=== PATIENT | female | born 1990 | race Caucasian/White ===

== ENCOUNTER 2020-09-13 16:09 | Outpatient (REF) | payer MEDICAID, SELFPAY ==
[2020-09-13 16:09] LABS: TSH (W/Ref FT4) 0.87 uIU/mL (0.36-3.74)
[2020-09-14 14:21] LABS: Chlamydia Result Negative (Negative); GC Result Negative (Negative)
== END 2020-09-13 16:29 ==
LOC: NCHCN 16:09
PROVIDERS: PCP Nurse Practitioner Family; Visit Provider Nurse Practitioner Family
DX: N89.8 Other specified noninflammatory disorders of vagina (principal); Z11.3 Encounter for screening for infections with a predominantly sexual mode of transmission; Z20.2 Contact with and (suspected) exposure to infections with a predominantly sexual mode of transmission
CPT/HCPCS: 87491; 87591; 84443; 87480; 87510; 87660

== ENCOUNTER 2023-05-08 14:32 | Outpatient (REF) | payer MEDICAID, SELFPAY ==
[2023-05-09 13:13] LABS: Chlamydia Result Negative (Negative); GC Result Negative (Negative)
== END 2023-05-08 14:33 | disposition home or self-care (01) ==
LOC: LBN 14:32
PROVIDERS: PCP Nurse Practitioner Family; Visit Provider Obstetrics & Gynecology
DX: N94.89 Other specified conditions associated with female genital organs and menstrual cycle; N89.8 Other specified noninflammatory disorders of vagina; Z11.3 Encounter for screening for infections with a predominantly sexual mode of transmission; N76.0 Acute vaginitis
CPT/HCPCS: 87491; 87591; 87480; 87510; 87660

== ENCOUNTER 2023-10-24 16:21 | Outpatient (REF) | payer MEDICAID, SELFPAY ==
[2023-10-26 14:40] LABS: Chlamydia Result Negative (Negative); GC Result Negative (Negative)
== END 2023-10-24 16:22 | disposition home or self-care (01) ==
LOC: LBN 16:21
PROVIDERS: PCP Nurse Practitioner Family; Visit Provider Obstetrics & Gynecology
DX: N89.8 Other specified noninflammatory disorders of vagina (principal); Z11.3 Encounter for screening for infections with a predominantly sexual mode of transmission
CPT/HCPCS: 87491; 87591; 87480; 87510; 87660

== ENCOUNTER 2024-07-22 11:28 | Outpatient (REF) | payer MEDICAID, SELFPAY ==
[2024-07-22 13:02] LABS: Bilirubin Negative (Negative); Blood Negative (Negative); Clarity Clear (Clear); Glucose Negative (Negative); Ketones Negative (Negative); Leukocyte Esterase Small (Negative); Nitrite Negative (Negative); Specific Gravity 1.015 (1.005-1.025); Urobilinogen 0.2 mg/dL (Up to 0.2); pH 5.5 (5-8)
[2024-07-22 13:16] LABS: RBC 0-2 HPF (0-2)
[2024-07-22 13:17] LABS: Bacteria Few HPF (Negative); C & S Indicated? No/Sq. Contamination; Casts Negative LPF (Negative); Crystals Negative HPF (Negative); Epithelial Cells Moderate HPF (Negative); Mucus Negative (Negative)
[2024-07-24 13:15] LABS: Bacterial Vaginosis (BV) Positive (Negative); Candida glabrata Negative (Negative); Candida species group Negative (Negative); Chlamydia Result Negative (Negative); GC Result Negative (Negative); Trichomonas vaginalis Negative (Negative)
== END 2024-07-22 11:29 | disposition home or self-care (01) ==
LOC: LBN 11:28
PROVIDERS: PCP Nurse Practitioner Family; Visit Provider Physician Assistant
DX: R39.9 Unspecified symptoms and signs involving the genitourinary system; Z11.3 Encounter for screening for infections with a predominantly sexual mode of transmission; N39.0 Urinary tract infection, site not specified; R30.0 Dysuria; N89.8 Other specified noninflammatory disorders of vagina
CPT/HCPCS: 81513; 87481; 87491; 87591; 87661; 81003; 81015; 87480; 87510; 87660

== ENCOUNTER 2025-01-26 14:56 | Outpatient (CLI) | payer MEDICAID, SELFPAY ==
--- NOTE | 2025-01-26 14:45 | DI.RAD_ITS ---
Exam(s) XR CHEST 2V PA LATERAL EXAM: XR CHEST 2V PA LATERAL CLINICAL HISTORY: R05.9 Cough, r/o pneumonia TECHNIQUE: 2D digital imaging was performed of the chest. Two images were obtained. PA and lateral views were obtained. COMPARISON: No exams were available for comparison FINDINGS: MEDIASTINUM: Normal. HEART: Normal. PULMONARY VASCULATURE: Normal. LUNGS: Clear. PLEURAL SPACE: No pleural effusion or pneumothorax. BONE:Within normal limits for the patient's age. OTHER FINDINGS:Normal. IMPRESSION: No acute pulmonary findings. DATA REPOSITORY: RADIATION DOSE DELIVERED:
== END 2025-01-26 15:16 ==
LOC: DI 14:57
PROVIDERS: PCP Nurse Practitioner Family; Visit Provider Physician Assistant
DX: R05.9 Cough, unspecified (principal)
CPT/HCPCS: 71046

== ENCOUNTER 2025-06-02 19:32 | Outpatient (REF) | payer SELFPAY ==
[2025-06-04 11:14] LABS: Chlamydia Result Negative (Negative); GC Result Negative (Negative)
== END 2025-06-02 19:33 | disposition home or self-care (01) ==
LOC: LBN 19:32
PROVIDERS: Visit Provider Nurse Practitioner Family
DX: R30.0 Dysuria (principal); Z11.3 Encounter for screening for infections with a predominantly sexual mode of transmission
CPT/HCPCS: 87491; 87591; 87480; 87510; 87660

== ENCOUNTER → 2025-07-26 02:30 | Outpatient (CLI) | payer MEDICAID, SELFPAY ==
--- NOTE | 2025-07-26 13:45 | DI.MAMMO_ITS ---
Exam(s) US BREAST RT COMPLETE MG MAMMO DIAGNOSTIC BI EXAM: MG MAMMO DIAGNOSTIC BI AND COMPLETE RIGHT BREAST ULTRASOUND CLINICAL HISTORY: eval pathology,rt breast swelling and infection,mastitis,n61.0. TECHNIQUE: BILATERAL CC AND MLO mammographic images were obtained with 3D tomosynthesis technique and utilizing computer aided detection (CAD). ALSO PERFORMED SPOT COMPRESSION VIEW OF THE RIGHT BREAST THE RIGHT BREAST ULTRASOUND performed including all 4 quadrants as well as the axillary region. COMPARISON: Baseline study on this 35-year-old patient who has retroareolar region recently treated abscess with oral antibiotics q.i.d.. She claims that it is significantly smaller than previous but not completely gone. She has bilateral nipple rings, not recently placed. FINDINGS: DIAGNOSTIC BILATERAL MAMMOGRAM: Bilateral nipple rings in place. No significant focal findings in left breast. In the right breast at the central 7 o'clock position there is an asymmetric ill-defined density. Spot compression view is equivocal. There are no malignant appearing microcalcification groups in this region or elsewhere in either breast Architectural distortion or skin thickening-retraction. THE RIGHT BREAST ULTRASOUND: There is a solitary finding which is at the central 7 o'clock position and corresponds to the finding on the mammogram. This has the appearance of remnant of abscess measuring approximately 1.8 x 0.9 cm. No other findings in all 4 quadrants. No significant weight axillary adenopathy IMPRESSION: Findings the central 7 o'clock position are consistent with abscess or remnant of abscess. The patient claims that it is significantly smaller than previous but does not feel that it is completely resolved. Appropriate follow-up is repeat ultrasound after appropriate clinical interval. Decision for additional antibiotic treatment is at discretion of the referring physician.. The patient was informed of the findings and follow-up recommendations by myself prior to leaving the department today. BI-RADS Category 3 - 3 month - Probably Benign Finding: Recommend follow-up mammography in 3 months Breast Density - Category B - There are scattered areas of fibroglandular density. Breast density Category C or D implies that the patient has dense breast tissue. Dense breast tissue can make it harder to find cancer on a mammogram. Dense breast tissue is also associated with an increased risk of breast cancer. This information about the result of the mammogram report was provided to the patient to raise their awareness. Use this report when you speak with the patient about their risks for breast cancer, which includes their family history. At that time, you may recommend additional screening tests (Ultrasound or MRI) as these tests may add significant information. A negative radiographic report should not delay biopsy if a dominant or clinically suspicious mass is present. Up to ten percent of cancers are not identified on mammography. A negative report may reinforce clinical impression. Adenosis and dense breasts may obscure an underlying neoplasm. False positive reports average 6 to 10%. Patient will receive a letter notifying them of these results.
== END ==
LOC: DI 02:30
PROVIDERS: Visit Provider Nurse Practitioner Family
DX: N61.0 Mastitis without abscess (principal); N63.24 Unspecified lump in the left breast, lower inner quadrant
CPT/HCPCS: 76642; 77062; 77066; G0279